=== PATIENT | female | born 1960 | race Caucasian/White ===

== ENCOUNTER → 2024-01-02 | Outpatient (CLI) | payer MEDICARE, SELFPAY ==
[2024-01-02 16:49] LABS: Absolute Lymphocyte Count 0.74 X10^3/uL (0.83-4.51); Absolute Neutrophil Count 8.2 X10^3/uL (2.0-7.7); Basophil# 0.05 X10^3/uL; Basophil% 0.5 % (0-1); Hematocrit 41.4 % (37-47); Hemoglobin 13.6 g/dL (12.0-15.0); Lymphocyte # 0.74 X10^3/ul (0.83-4.51); Lymphocyte % 7.8 % (19-41); Mean Corp Hgb Conc 32.9 g/dL (32-36); Mean Corpuscular Hgb 29.4 pg (27.0-32.0); Mean Corpuscular Volume 89.4 fL (81-99); Mean Platelet Vol. 9.3 fl (6.2-12.0); Monocyte# 0.33 X10^3/uL; Monocyte% 3.5 % (0-10); NRBC Flagged by Analyzer 0 % (0-5); Neutrophil # 8.15 X10^3/uL (2.7-7.7); Neutrophil % 86.3 % (47-70); Platelet Count 204 K/mm3 (150-450); RBC Distribution Width CV 13.7 % (11.6-14.6); RBC Distribution Width SD 44.6 fl (35.1-43.9); Red Blood Count 4.63 M/mm3 (4.2-5.4); White Blood Count 9.5 K/mm3 (4.4-11.0)
[2024-01-02 17:11] LABS: Erythrocyte Sedimentation Rate 4 mm/hr (0-30)
[2024-01-02 17:19] LABS: Vitamin B12 513 pg/mL (211-911)
[2024-01-02 18:00] LABS: ALB/GLOB Ratio 1.1 RATIO (0.9-2.4); AST(SGOT) 23 U/L (15-37); Alanine Aminotransfer ALT/SGPT 64 U/L (13-56); Albumin, Serum 3.4 g/dL (3.2-5.0); Alkaline Phosphatase 61 U/L (45-117); Anion Gap 6 (5-15); BUN 23 mg/dL (7-18); BUN/Creat Ratio 22.1 RATIO (10-20); CRP < 2.90 mg/L (0.0-3.0); Calcium,Total 8.9 mg/dL (8.5-10.1); Chloride 105 mmol/L (98-107); Creatinine, Serum 1.04 mg/dL (0.55-1.02); EST Glomerular Filtration Rate 56 mL/min (>60); Est Glom Filt Rate - Afr Amer 68 mL/min (>60); Globulin 3.1 g/dL (2.2-4.2); Glucose 128 mg/dL (74-106); LDH 242 U/L (84-246); Potassium 4.2 mmol/L (3.5-5.1); Protein, Total 6.5 g/dL (6.4-8.2); Sodium Level 137 mmol/L (136-145)
[2024-01-09 07:08] LABS: Anti-Centromere B Ab <0.2 AI (0.0-0.9); Anti-Chromatin <0.2 AI (0.0-0.9); Anti-Jo <0.2 AI (0.0-0.9); Anti-Mitochondrial AB <20.0 Units (0.0-20.0); Anti-Scleroderma-70 AB <0.2 AI (0.0-0.9); Anti-dsDNA Ab <1 IU/mL (0-9); Beef 0.15 kU/L (Class 0/I); Chocolate 0.21 kU/L (Class 0/I); Codfish 0.16 kU/L (Class 0/I); Corn 2.46 kU/L (Class III); Egg, Whole 0.13 kU/L (Class 0/I); Milk (Cow) 0.71 kU/L (Class II); Mussels 0.96 kU/L (Class II); Peanut 2.78 kU/L (Class III); Pork 0.13 kU/L (Class 0/I); RNP Ab <0.2 AI (0.0-0.9); SJOGREN'S Anti-SS-A test < 0.2 AI (0.0-0.9); SJOGREN'S Anti-SS-B test < 0.2 AI (0.0-0.9); Salmon 0.14 kU/L (Class 0/I); Shrimp 1.05 kU/L (Class II); Smith Ab <0.2 AI (0.0-0.9); Soybean 2.23 kU/L (Class III); Tuna 0.11 kU/L (Class 0/I); Wheat 2.67 kU/L (Class III)
[2024-01-09 17:07] LABS: ACCA 0 units (0-90); ALCA 3 units (0-60); AMCA 2 units (0-100); Albumin 3.8 g/dL (2.9-4.4); Alpha-1-Globulins 0.1 g/dL (0.0-0.4); Alpha-2-Globulins 0.7 g/dL (0.4-1.0); Chromogranin A 497.8 ng/mL (0.0-101.8); Cytoplasmic Ab (C-ANCA) <1:20 titer (Neg:<1:20); Endomysial Antibody IgA Negative (Negative); Gamma Globulin 0.6 g/dL (0.4-1.8); Gastrin, Serum 290 pg/mL (0-115); IgG, Quant 661 mg/dL (586-1602); Immunoglobulin A 131 mg/dL (87-352); Immunoglobulin E 114 IU/mL (6-495); Immunoglobulin G, Subclass 1 257 mg/dL (248-810); Immunoglobulin G, Subclass 2 280 mg/dL (130-555); Immunoglobulin G, Subclass 3 43 mg/dL (15-102); Immunoglobulin G, Subclass 4 24 mg/dL (2-96); Immunoglobulin M 75 mg/dL (26-217); PROEL- TOTAL PROTEIN 6.1 g/dL (6.0-8.5); Perinuclear Ab (P-ANCA) <1:20 titer (Neg:<1:20); gASCA 8 units (0-50); t-Transglutaminase IgA <2 U/mL (0-3)
== END | disposition home or self-care (01) ==
PROVIDERS: PCP Family Medicine; Referring Provider Internal Medicine Gastroenterology; Visit Provider Internal Medicine Gastroenterology
DX: K58.9 Irritable bowel syndrome, unspecified (principal); K21.9 Gastro-esophageal reflux disease without esophagitis; R13.10 Dysphagia, unspecified
CPT/HCPCS: 36415; 80053; 82533; 82607; 82746; 82784; 82785; 82787; 82941; 83516; 83615; 84165; 84443; 85025; 85652; 86003; 86005; 86036; 86140; 86225; 86235; 86255; 86256; 86316; 86334; 86671

== ENCOUNTER → 2024-01-18 | Outpatient (CLI) | payer MEDICARE, SELFPAY ==
--- NOTE | 2024-01-18 10:54 | NM_ITS ---
CLINICAL: 63-year-old female with history of abdominal bloating. SEMI-SOLID PHASE 99m Tc SULFUR COLLOID GASTRIC EMPTYING STUDY COMPARISON: None available FINDINGS: The patient was administered 1.0 mCi of 99m Tc sulfur colloid mixed with oatmeal and consumed per os. Image acquisitions in the anterior-posterior projections were obtained for 60 minutes. There is prompt visualization of the stomach. There is no gastroesophageal reflux identified. The T ? raw data emptying was calculated to be 30.45 minutes, (Normal: 12-56 minutes). NM/Gastric Emptying Study IMPRESSION: 1. NORMAL 99m Tc sulfur colloid semi-solid phase (oatmeal) gastric emptying imaging examination. A. There is normal and preserved semi-solid phase gastric emptying compared to normal controls. (Sam et al, J Nucl Med Tech 38: 186, 2010). Electronically Signed: Asael Jefferson DO at 12:09 EDT ,
== END | disposition home or self-care (01) ==
PROVIDERS: PCP Family Medicine; Referring Provider Internal Medicine Gastroenterology; Visit Provider Internal Medicine Gastroenterology
DX: R14.0 Abdominal distension (gaseous) (principal); K58.9 Irritable bowel syndrome, unspecified; K21.9 Gastro-esophageal reflux disease without esophagitis
CPT/HCPCS: 78264; A9541

== ENCOUNTER 2024-01-21 07:30 | Day surgery (SDC) | payer MEDICARE, SELFPAY ==
[2024-01-21] VITALS (7 sets, daily range): BP systolic 135–151; BP diastolic 66–90; PULSE 85–96; RESP 16; TEMP 36.2–36.6; O2SAT 97–100; BMI 27.9
[2024-01-21] MEDS: Lactated Ringers 1,000 ML 15 ML IV (07:55)
--- NOTE | 2024-01-21 08:00 | HP.PCM_ITS ---
History and Physical Date of Admission: 01/21/24 Chief Complaint: acid reflux, constipation and diarrhea Details: AYUSH MUELLER, is a 63 F who presents to the office today for follow up. BGI Established 2.1.23 with GI for acid reflux and alternating diarrhea and constipation. She reports a long hx of GI issues. Acid reflux to the point of spewing out when she lies down. Lots of heartburn. Hx of esophageal stricture requiring dilation. Hx of choking, requiring ED for food bolus removal, then prescribed pantoprazole which she eventually weaned herself off of. Then she took famotidine 40 mg bid but not effective enough. Just resumed pantoprazole a week ago, it is providing relief of acid reflux but she does have some dysphagia with eating meat. She loves to cook but finds herself not wanting to eat due to GI symptoms. Alternates between constipation and diarrhea. Seems like underlying constipation with urgent diarrhea that overflows. Tried Metamucil, bone broth, flax seed. When she gets bloated from constipation then she'll eat a food that causes diarrhea. Needs to eat small meals or get abd pain and bloating across upper a bdomen. Hx diverticulitis, small bowel obstruction. Colonoscopy approx 2019, EGD not in recent years PSH: cholecystectomy, hysterectomy OV 4.3.24- Pt following up. Was supposed to have EGD at last visit but had issues with INS coverage. States she has been recently hospitalized for low platlet counts r/t recent pneumonia and flu. Continues to have heartburn and swallowing issues. Concerned she has multiple food allergies. Has pain after eating that will last several hours. BM are irregular. Back and forth. ROS Const Constitutional: Positive for fatigue and weight change ENT ENT: Positive for difficulty swallowing Gastro GI: Positive for abdominal pain, bloating, diarrhea and difficulty swallowing; No belching, change in bowel habits, change in stool character, coffee ground emesis, constipation, cramping, heartburn, feeling full early, excessive flatus, incontinent of stools, Vomiting blood/hematemesis, Blood in stool, loose stools, Black,tarry stools, nausea/dyspepsia, pain with swallowing, vomiting or other Musc Musculoskeletal: No joint pain Skin Skin: No yellowing of the eye or itchy eyes Psych Psychiatric: No anxiety and No depression Endo Endocrine: Positive for fatigue and weight change Aller/Imm Allergy/Immunologic: No itchy eyes Jose Carlos/Lymp Hematologic/Lymphatic: No easy bleeding or easy bruising Exam Const General: cooperative, healthy appearing and comfortable Orientation: alert, awake and oriented x3 HENMT Head: normal to inspection Eyes General: appearance normal, both eyes and all related structures Resp Effort & Inspection: normal respiratory effort GI Inspection: normal to inspection Palpation: soft, no hepatosplenomegaly, no masses and nontender Skin General: no rashes or lesions noted Psych Mood: euthymic mood Quality Reporting Tobacco Screening ([facility] 138) Smoking Status: Never smoker Assessment and Plan Assessment and Plan (1) IBS (irritable bowel syndrome): Status: Chronic Plan: To she was given a diagnosis of viral bowel syndrome in the past. To me it sounds like she could have a multitude of diagnoses. Including gastroparesis, bile induced gastritis and esophagitis, exocrine pancreatic insufficiency, small bacterial overgrowth. She will undergo an upper endoscopy to evaluate upper GI tract. She will also undergo gastric emptying study and biochemical workup for autoimmune disease. She will also need a HIDA scan to see how much bile acid she may be refluxing back into her stomach. Once we have performed all the testing and we have objective data hopefully will be able to give her a diagnosis and treatment plan. (2) GERD (gastroesophageal reflux disease): Status: Chronic Plan: 62 yo female with chronic acid reflux, dysphagia w/ hx esophageal stricture, chronic alternating constipation and diarrhea with abdominal pains associated with both. EGD to eval for esophagitis, esophageal stricture, Lynn's esophagus. Treat for IBS with underlying constipation and overflow diarrhea. She has miralax at home, will try taking that daily. Other OTC options are FiberChoice tablets, kiwi supplements, aloe vera gel pills. F/u 2 wks after EGD. (3) Dysphagia: Status: Chronic Plan: see above Orders: Orders PAZ + Protein Elect, Serum Today K21.9 - Gastro-esophageal reflux disease withou t esophagitis, K58.9 - Irritable bowel syndrome without diarrhea Celiac Disease Profile Today K21.9 - Gastro-esophageal reflux disease without esophagitis, K58.9 - Irritable bowel syndrome without diarrhea CBC W/Diff, Automated Today K21.9 - Gastro-esophageal reflux disease without esophagitis, K58.9 - Irritable bowel syndrome without diarrhea ANCA Today K21.9 - Gastro-esophageal reflux disease without esophagitis, K58.9 - Irritable bowel syndrome without diarrhea Anti-Mitochondrial AB Today K21.9 - Gastro-esophageal reflux disease without esophagitis, K58.9 - Irritable bowel syndrome without diarrhea Comprehensive Metabolic Profil Today K21.9 - Gastro-esophageal reflux disease without esophagitis, K58.9 - Irritable bowel syndrome without diarrhea CRP Today K21.9 - Gastro-esophageal reflux disease without esophagitis, K58.9 - Irritable bowel syndrome without diarrhea Erythrocyte Sed Rate Today K21.9 - Gastro-esophageal reflux disease without esophagitis, K58.9 - Irritable bowel syndrome without diarrhea Immunoglobulin E Today K21.9 - Gastro-esophageal reflux disease without esophagitis, K58.9 - Irritable bowel syndrome without diarrhea Pancreatic Elastase, Fecal Today K21.9 - Gastro-esophageal reflux disease without esophagitis, K58.9 - Irritable bowel syndrome without diarrhea Ova and Parasites 8623 Today K21.9 - Gastro-esophageal reflux disease without esophagitis, K58.9 - Irritable bowel syndrome without diarrhea Giardia Lamblia, Stool EIA Today K21.9 - Gastro-esophageal reflux disease without esophagitis, K58.9 - Irritable bowel syndrome without diarrhea IBD Expanded Profile Today K21.9 - Gastro-esophageal reflux disease without esophagitis, K58.9 - Irritable bowel syndrome without diarrhea Allergen, Food Profile 14 Today K21.9 - Gastro-esophageal reflux disease without esophagitis, K58.9 - Irritable bowel syndrome without diarrhea RENATA Comprehensive Panel Today K21.9 - Gastro-esophageal reflux disease without esophagitis, K58.9 - Irritable bowel syndrome without diarrhea Calprotectin, Stool Today K21.9 - Gastro-esophageal reflux disease without esophagitis, K58.9 - Irritable bowel syndrome without diarrhea LDH Today K21.9 - Gastro-esophageal reflux disease without esophagitis, K58.9 - Irritable bowel syndrome without diarrhea IgG Subclasses Today K21.9 - Gastro-esophageal reflux disease without e sophagitis, K58.9 - Irritable bowel syndrome without diarrhea Thyroid Stim Hormone (TSH) Today K21.9 - Gastro-esophageal reflux disease without esophagitis, K58.9 - Irritable bowel syndrome without diarrhea, R13.10 - Dysphagia, unspecified Vitamin B12 Today K21.9 - Gastro-esophageal reflux disease without esophagitis, K58.9 - Irritable bowel syndrome without diarrhea Gastrin, Serum Today K21.9 - Gastro-esophageal reflux disease without esophagitis, K58.9 - Irritable bowel syndrome without diarrhea Chromogranin A Today K21.9 - Gastro-esophageal reflux disease without esophagitis, K58.9 - Irritable bowel syndrome without diarrhea CORTISOL SERUM Today K21.9 - Gastro-esophageal reflux disease without esophagitis, K58.9 - Irritable bowel syndrome without diarrhea Gastric Emptying Study Today K21.9 - Gastro-esophageal reflux disease without esophagitis, K58.9 - Irritable bowel syndrome without diarrhea, R14.0 - Abdominal distension (gaseous) Folates, (Folic Acid) Today K21.9 - Gastro-esophageal reflux disease without esophagitis, K58.9 - Irritable bowel syndrome without diarrhea I have examined the patient and the H&P has been reviewed. There are no clinical changes since date of exam.
--- NOTE | 2024-01-21 08:35 | IMM_PTH ---
PATIENT: AYUSH MICHELE LOC: [facility] U#:[id number] AGE/SX: 63/F ROOM: RE01/21/[address]: Dr. Dennis Galvin DO : 1960 BED: DIS: 01/21/2024 SPEC #: [id number] RECD: 01/21/24 12:07 STATUS: JOE OLYA #: [id number] EULALIA: 01/21/24 08:[address]: Dennis Galvin DEPT: IMMUNOHISTOCHEMISTRY RECD BY: Patrick Hernandez ENTERED: 01/21/24 12:08 SP TYPE: IMMUNO OTHR DR: Niecy Escobar PA-C Tissues: B - Stomach, NOS Procedures: H Pylori (initial) PHYSICIAN & INSTITUTION [place] [id number] SPECIMEN INFORMATION: Tissue Source: B- Gastric antrum biopsy Clinical Info: Abdominal pain, GERD Specimen Number: [id number] CPT code: 60751 METHODOLOGY: Deparaffinized sections of prefer/formalin-fixed tissue or PAP/DQ stained slides are incubated with monoclonal/polyclonal antibodies/oligonucleotide probes. Localization is made via biotin free immunoperoxidase method. Appropriate controls are performed and reacted as expected. Results on target cell population are indicated in the following table: RESULTS: ANTIBODY / CLONE RESULT Block B H Pylori (polyclonal) negative These tests were developed and their performance characteristics determined by [facility]. They may not have been cleared or approved by the U.S. Food and Drug Administration. The FDA has determined that such clearance or approval is not necessary. The above immunohistochemical/dualISH markers are ordered and reviewed by the Pathologist. INTERPRETATION: B. Gastric antrum, biopsy: Negative for Helicobacter pylori organisms. TARUN/ 01/22/2024
--- NOTE | 2024-01-21 08:35 | EGD_PTH ---
PATIENT: AYUSH MICHELE LOC: [facility] U#:[id number] AGE/SX: 63/F ROOM: RE01/21/[address]: Dr. Dennis Galvin DO : 1960 BED: DIS: 01/21/2024 SPEC #: [id number] RECD: 01/21/24 10:02 STATUS: JOE OLYA #: [id number] EULALIA: 01/21/24 08:[address]: Dennis Galvin DEPT: SURGICAL PATHOLOGY RECD BY: Sandra Cody ENTERED: 01/21/24 10:59 SP TYPE: EGD BIOPSY OT DR: Niecy Escobar PA-C Tissues: A - Duodenum, NOS B - Gastric mucous membrane C - Esophagus, NOS Procedures: Special Stain Group II Surgery Specimen Level IV Alcian Blue/PAS (control) HEADER OPERATION: EGD- PH probe with biopsies PRE-OP DIAGNOSIS: Abdominal pain, GERD TISSUE SUBMITTED: A- Duodenum ulcer biopsy, B- Gastric antrum biopsy, C- Distal esophagus biopsy MICROSCOPIC DIAGNOSIS A. Duodenum ulcer, biopsy: Fragments of duodenal mucosa with focal adenomatous changes. B. Gastric antrum, biopsy: Mild gastritis. See microscopic description and comment. C. Distal esophagus, biopsy: Fragments of gastroesophageal mucosa with chronic inflammation and minimal acute inflammation. Intestinal metaplasia (goblet cell metaplasia) not identified. See comment. TARUN/ 01/22/2024 COMMENT B. The results of immunohistochemistry for Helicobacter pylori will be reported separately ([id number]). C. Alcian blue/PAS stain with matched control is used in the evaluation of the specimen. MICROSCOPIC DESCRIPTION Slides are reviewed. B. The specimen shows fragments of gastric mucosa with chronic inflammatory cell infiltrates in the lamina propria consisting of lymphocytes and plasma cells, consistent with mild chronic gastritis. GROSS DESCRIPTION A. Received in fixative is one container labeled with the patient's name and designated Duodenum ulcer biopsy. The specimen consists of two irregular fragments of light brown soft tissue that in aggregate measure 0.6 x 0.3 x 0.1 cm. The specimen is totally submitted in one cassette. B. Received in fixative is one container labeled with the patient's name and designated Gastric antrum biopsy. The specimen consists of multiple irregular fragments of light brown soft tissue that in aggregate measure 0.8 x 0.4 x 0.1 cm. The specimen is totally submitted in one cassette. C. Received in fixative is one container labeled with the patient's name and designated Distal esophagus biopsy. The specimen consists of two irregular fragments of light brown soft tissue that in aggregate measure 0.8 x 0.4 x 0.1 cm. The specimen is totally submitted in one cassette. TARUN/ 01/21/2024 TC:5 CPT:51587g6,46974
--- NOTE | 2024-01-21 09:00 | OP.EGD_ITS ---
Patient Name: Loraine Gross Procedure Date: 01/21/2024 8:41 AM Date of : 1960 Age: 63 Procedure: Upper GI endoscopy Indications: Epigastric abdominal pain, Heartburn Providers: Dennis Galvin DO Referring MD: Niecy Escobar Medicines: Monitored Anesthesia Care Patient Profile: This is a 63 year old female. Refer to note in patient chart for documentation of history and physical. Patient has symptoms of chronic epigastric abdominal pain. Complications: No immediate complications. Procedure: Pre-Anesthesia Assessment: - Prior to the procedure, a History and Physical was performed, and patient medications and allergies were reviewed. The risks and benefits of the procedure and the sedation options and risks were discussed with the patient. All questions were answered and informed consent was obtained. Patient identification and proposed procedure were verified by the physician. Mental Status Examination: normal. Prophylactic Antibiotics: The patient does not require prophylactic antibiotics. Prior Anticoagulants: The patient has taken no anticoagulant or antiplatelet agents. After reviewing the risks and benefits, the patient was deemed in satisfactory condition to undergo the procedure. The anesthesia plan was to use monitored anesthesia care (MAC). Immediately prior to administration of medications, the patient was re-assessed for adequacy to receive sedatives. The heart rate, respiratory rate, oxygen saturations, blood pressure, adequacy of pulmonary ventilation, and response to care were monitored throughout the procedure. The physical status of the patient was re-assessed after the procedure. After obtaining informed consent, the endoscope was passed under direct vision. Throughout the procedure, the patient's blood pressure, pulse, and oxygen saturations were monitored continuously. The Endoscope was introduced through the mouth, and advanced to the second part of duodenum. The upper GI endoscopy was accomplished without difficulty. The patient tolerated the procedure well. Scope In: 8:47:18 AM Scope Out: 8:55:49 AM Total Procedure Duration Time 0 hours 8 minutes 31 seconds Findings: Non-severe esophagitis with no bleeding was found 35 to 37 cm from the incisors. Biopsies were taken with a cold forceps for histology. Verification of patient identification for the specimen was done. Estimated blood loss was minimal. The CHOUDHURY capsule with delivery system was introduced through the mouth and advanced into the esophagus, such that the CHOUDHURY pH capsule was positioned 38 cm from the incisors, which was 6 cm proximal to the GE junction. Suction was applied to the well of the CHOUDHURY pH capsule to suck in the adjacent mucosa of the esophagus using the external vacuum pump set at a minimum vacuum pressure of 550 mmHg for 30 seconds. The CHOUDHURY pH capsule was then deployed by depressing the plunger on top of the handle to advance the locking pin into the mucosa, thereby attaching the capsule to the esophagus. The plunger was then rotated a quarter turn clockwise to release the capsule from the delivery system. The delivery system was then withdrawn. Endoscopy was utilized for probe placement and diagnostic evaluation. Patchy mild inflammation characterized by erosions and erythema was found in the gastric body and in the gastric antrum. Biopsies were taken with a cold forceps for histology. Verification of patient identification for the specimen was done. Biopsies were taken with a cold forceps for Helicobacter pylori testing. Verification of patient identification for the specimen was done. Estimated blood loss was minimal. One non-bleeding cratered duodenal ulcer with no stigmata of bleeding was found in the first portion of the duodenum. The lesion was 5 mm in largest dimension. Biopsies were taken with a cold forceps for histology. Verification of patient identification for the specimen was done. Estimated blood loss was minimal. Impression: - Non-severe reflux esophagitis with no bleeding. Biopsied. - Chronic gastritis. Biopsied. - Non-bleeding duodenal ulcer with no stigmata of bleeding. Biopsied. - The CHOUHDURY pH capsule was positioned 38 cm from the incisors, which was 6 cm proximal to the GE junction. Recommendation: - Discharge patient to home. - Resume previous diet. - Continue present medications. - Await pathology results. - Repeat upper endoscopy in 1 year for surveillance. Procedure Code(s): --- Professional --- 90915, Esophagogastroduodenoscopy, flexible, transoral; with biopsy, single or multiple CPT copyright 2021 [employer]. All rights reserved. The codes documented in this report are preliminary and upon county coroner review may be revised to meet current compliance requirements. Dennis Galvin DO 01/21/2024 9:00:00 AM This report has been signed electronically. Number of Addenda: 0 Note Initiated On: 01/21/2024 8:41 AM
--- NOTE | 2024-01-21 09:00 | OP.CCLET_ITS ---
01/21/2024 [facility] Re : Upper GI endoscopy procedure for Loraine Escobar This procedure was performed on Sunday, January 21, 2024. My impressions and recommendations are as follows: Impressions : - Non-severe reflux esophagitis with no bleeding. Biopsied. - Chronic gastritis. Biopsied. - Non-bleeding duodenal ulcer with no stigmata of bleeding. Biopsied. - The CHOUDHURY pH capsule was positioned 38 cm from the incisors, which was 6 cm proximal to the GE junction. Recommendations : - Discharge patient to home. - Resume previous diet. - Continue present medications. - Await pathology results. - Repeat upper endoscopy in 1 year for surveillance. My findings are described in the full procedure note, which is enclosed. If I can be of further assistance, please feel free to contact me at . Sincerely, Dennis Galvin, 01/21/2024 9:00:00 AM This report has been signed electronically.
== END 2024-01-21 09:53 | disposition home or self-care (01) ==
LOC: EN 07:30 → AC 07:31
PROVIDERS: PCP Family Medicine; Referring Provider Family Medicine; Visit Provider Internal Medicine Gastroenterology
PROC: (CPT 43235; principal; 2024-01-21 08:30)
DX: K21.00 Gastro-esophageal reflux disease with esophagitis, without bleeding (principal); K29.50 Unspecified chronic gastritis without bleeding; K26.9 Duodenal ulcer, unspecified as acute or chronic, without hemorrhage or perforation; K58.2 Mixed irritable bowel syndrome; Z79.899 Other long term (current) drug therapy
CPT/HCPCS: 43235; 88305; 88313; 88342; J7120; J2405

== ENCOUNTER → 2024-05-09 | Outpatient (CLI) | payer MEDICARE, SELFPAY ==
--- NOTE | 2024-05-09 08:19 | US_ITS ---
STUDY: ABDOMINAL ULTRASOUND - RIGHT UPPER QUADRANT; ELASTOGRAPHY REASON FOR VISIT: Female, 64 years old. Elevated liver function tests. TECHNIQUE: Ultrasound evaluation of the right upper quadrant was performed with real-time and static merino-scale imaging. Point quantification shear wave elastography was performed ([place]). TECHNICAL QUALITY: Adequate. COMPARISON: None. FINDINGS: Liver: The liver measures 17.6 cm. There is increased echogenicity consistent with fatty infiltration. The bile ducts are within normal limits. There is hepatic color flow. The direction of portal flow is hepatopetal. There is no demonstrated mass lesion. Median liver stiffness measured 7.2 kPa. Gallbladder: The patient is status post cholecystectomy. Common Bile Duct (C.B.D.): The common bile duct measures 5.6 mm. Pancreas: There is normal echogenicity of the visualized pancreas. There is no demonstrated pancreatic mass or cyst. Right Kidney: Normal size of the right kidney. The right kidney measures 10.9 cm x 6.3 cm x 4.3 cm. Normal renal cortex. The right cortex measures 1.2 cm. There is no demonstrated renal mass or cyst. There is no right hydronephrosis. US/ABD Limited w/ Elastography IMPRESSION: 1. Liver stiffness measures 7.2 kPa compatible with F2-F3 (Mild to moderate liver fibrosis) Metavir score. 2. Fatty infiltration of the liver. Electronically Signed: Javy Flynn MD at 12:06 EDT ,
== END | disposition home or self-care (01) ==
PROVIDERS: PCP Family Medicine; Referring Provider Internal Medicine Gastroenterology; Visit Provider Internal Medicine Gastroenterology
DX: R79.89 Other specified abnormal findings of blood chemistry (principal)
CPT/HCPCS: 76705; 76981

== ENCOUNTER 2024-05-26 10:39 | Day surgery (SDC) | payer MEDICARE, SELFPAY ==
[2024-05-26] VITALS (9 sets, daily range): BP systolic 110–170; BP diastolic 71–82; PULSE 76–89; RESP 16; TEMP 36.4–36.9; O2SAT 97–99; BMI 29.9
--- NOTE | 2024-05-26 | ESO_PTH ---
PATIENT: AYUSH MICHELE LOC: [facility] U#:[id number] AGE/SX: 64/F ROOM: RE05/26/[address]: Dr. Dennis Galvin DO : 1960 BED: DIS: 05/26/2024 SPEC #: [id number] RECD: 05/27/24 07:10 STATUS: JOE OLYA #: [id number] EULALIA: 05/26/24 00:[address]: Dennis Galvin DEPT: SURGICAL PATHOLOGY RECD BY: José Miguel Oleary ENTERED: 05/27/24 09:59 SP TYPE: ADRI EDMONDSON DR: Niecy Escobar PA-C Tissues: A - Esophagus, NOS B - Ileum, NOS C - COLON BIOPSY Procedures: Special Stain Group I Surgery Specimen Level IV Alcian Blue/PAS (control) HEADER OPERATION: Colonoscopy, EGD with biopsy PRE-OP DIAGNOSIS: Irritable bowel syndrome, GERD, dysphagia TISSUE SUBMITTED: A- Distal esophagus biopsy, B- Terminal ileum biopsy, C- Random colon biopsy MICROSCOPIC DIAGNOSIS A. Distal esophagus, biopsy: Fragments of gastroesophageal mucosa with moderate chronic inflammation. Intestinal metaplasia (goblet cell metaplasia) not identified. See comment. B. Terminal ileum, biopsy: A fragment of small intestinal mucosa, no pathologic diagnosis. C. Colon, random biopsy: Fragments of colonic mucosa, no pathologic diagnosis. TARUN/ 05/28/2024 COMMENT A. Alcian blue/PAS stain with matched control supports the above diagnosis. MICROSCOPIC DESCRIPTION Slides are reviewed. GROSS DESCRIPTION A. Received in fixative is one container labeled with the patient's name and designated Distal esophagus biopsy. The specimen consists of multiple irregular fragments of light brown soft tissue that in aggregate measure 0.8 x 0.3 x 0.1 cm. The specimen is totally submitted in one cassette. B. Received in fixative is one container labeled with the patient's name and designated Terminal ileum biopsy. The specimen consists of one irregular fragment of light brown soft tissue that measures 0.3 x 0.3 x 0.1 cm. The specimen is totally submitted in one cassette. C. Received in fixative is one container labeled with the patient's name and designated Random colon biopsy. The specimen consists of multiple irregular fragments of light brown soft tissue that in aggregate measure 1.5 x 0.5 x 0.1 cm. The specimen is totally submitted in one cassette. SJ.mr 05/27/2024 TC:3 CPT:73561q2,12640
[2024-05-26] MEDS: Lactated Ringers 1,000 ML 15 ML IV (11:11)
--- NOTE | 2024-05-26 11:32 | HP.PCM_ITS ---
History and Physical Date of Admission: 05/26/24 Chief Complaint: acid reflux, constipation and diarrhea Details: AYUSH MUELLER, is a 63 F who presents to the office today for follow up. [facility] Established 2.1.23 with GI for acid reflux and alternating diarrhea and constipation. She reports a long hx of GI issues. Acid reflux to the point of spewing out when she lies down. Lots of heartburn. Hx of esophageal stricture requiring dilation. Hx of choking, requiring ED for food bolus removal, then prescribed pantoprazole which she eventually weaned herself off of. Then she took famotidine 40 mg bid but not effective enough. Just resumed pantoprazole a week ago, it is providing relief of acid reflux but she does have some dysphagia with eating meat. She loves to cook but finds herself not wanting to eat due to GI symptoms. Alternates between constipation and diarrhea. Seems like underlying constipation with urgent diarrhea that overflows. Tried Metamucil, bone broth, flax seed. When she gets bloated from constipation then she'll eat a food that causes diarrhea. Needs to eat small meals or get abd pain and bloating across upper a bdomen. Hx diverticulitis, small bowel obstruction. Colonoscopy approx 2019, EGD not in recent years PSH: cholecystectomy, hysterectomy OV 4.3.24- Pt following up. Was supposed to have EGD at last visit but had issues with INS coverage. States she has been recently hospitalized for low platlet counts r/t recent pneumonia and flu. Continues to have heartburn and swallowing issues. Concerned she has multiple food allergies. Has pain after eating that will last several hours. BM are irregular. Back and forth. ROS Const Constitutional: Positive for fatigue and weight change ENT ENT: Positive for difficulty swallowing Gastro GI: Positive for abdominal pain, bloating, diarrhea and difficulty swallowing; No belching, change in bowel habits, change in stool character, coffee ground emesis, constipation, cramping, heartburn, feeling full early, excessive flatus, incontinent of stools, Vomiting blood/hematemesis, Blood in stool, loose stools, Black,tarry stools, nausea/dyspepsia, pain with swallowing, vomiting or other Musc Musculoskeletal: No joint pain Skin Skin: No yellowing of the eye or itchy eyes Psych Psychiatric: No anxiety and No depression Endo Endocrine: Positive for fatigue and weight change Aller/Imm Allergy/Immunologic: No itchy eyes Jose Carlos/Lymp Hematologic/Lymphatic: No easy bleeding or easy bruising Exam Const General: cooperative, healthy appearing and comfortable Orientation: alert, awake and oriented x3 HENMT Head: normal to inspection Eyes General: appearance normal, both eyes and all related structures Resp Effort & Inspection: normal respiratory effort GI Inspection: normal to inspection Palpation: soft, no hepatosplenomegaly, no masses and nontender Skin General: no rashes or lesions noted Psych Mood: euthymic mood Quality Reporting Tobacco Screening ([facility]) Smoking Status: Never smoker Assessment and Plan Assessment and Plan (1) IBS (irritable bowel syndrome): Status: Chronic Plan: To she was given a diagnosis of viral bowel syndrome in the past. To me it sounds like she could have a multitude of diagnoses. Including gastroparesis, bile induced gastritis and esophagitis, exocrine pancreatic insufficiency, small bacterial overgrowth. She will undergo an upper endoscopy to evaluate upper GI tract. She will also undergo gastric emptying study and biochemical workup for autoimmune disease. She will also need a HIDA scan to see how much bile acid she may be refluxing back into her stomach. Once we have performed all the testing and we have objective data hopefully will be able to give her a diagnosis and treatment plan. (2) GERD (gastroesophageal reflux disease): Status: Chronic Plan: 62 yo female with chronic acid reflux, dysphagia w/ hx esophageal stricture, chronic alternating constipation and diarrhea with abdominal pains associated with both. EGD to eval for esophagitis, esophageal stricture, Lynn's esophagus. Treat for IBS with underlying constipation and overflow diarrhea. She has miralax at home, will try taking that daily. Other OTC options are FiberChoice tablets, kiwi supplements, aloe vera gel pills. F/u 2 wks after EGD. (3) Dysphagia: Status: Chronic Plan: see above Orders: Orders PAZ + Protein Elect, Serum Today K21.9 - Gastro-esophageal reflux disease withou t esophagitis, K58.9 - Irritable bowel syndrome without diarrhea Celiac Disease Profile Today K21.9 - Gastro-esophageal reflux disease without esophagitis, K58.9 - Irritable bowel syndrome without diarrhea CBC W/Diff, Automated Today K21.9 - Gastro-esophageal reflux disease without esophagitis, K58.9 - Irritable bowel syndrome without diarrhea ANCA Today K21.9 - Gastro-esophageal reflux disease without esophagitis, K58.9 - Irritable bowel syndrome without diarrhea Anti-Mitochondrial AB Today K21.9 - Gastro-esophageal reflux disease without esophagitis, K58.9 - Irritable bowel syndrome without diarrhea Comprehensive Metabolic Profil Today K21.9 - Gastro-esophageal reflux disease without esophagitis, K58.9 - Irritable bowel syndrome without diarrhea CRP Today K21.9 - Gastro-esophageal reflux disease without esophagitis, K58.9 - Irritable bowel syndrome without diarrhea Erythrocyte Sed Rate Today K21.9 - Gastro-esophageal reflux disease without esophagitis, K58.9 - Irritable bowel syndrome without diarrhea Immunoglobulin E Today K21.9 - Gastro-esophageal reflux disease without esophagitis, K58.9 - Irritable bowel syndrome without diarrhea Pancreatic Elastase, Fecal Today K21.9 - Gastro-esophageal reflux disease without esophagitis, K58.9 - Irritable bowel syndrome without diarrhea Ova and Parasites [id number] Today K21.9 - Gastro-esophageal reflux disease without esophagitis, K58.9 - Irritable bowel syndrome without diarrhea Giardia Lamblia, Stool EIA Today K21.9 - Gastro-esophageal reflux disease without esophagitis, K58.9 - Irritable bowel syndrome without diarrhea IBD Expanded Profile Today K21.9 - Gastro-esophageal reflux disease without esophagitis, K58.9 - Irritable bowel syndrome without diarrhea Allergen, Food Profile 14 Today K21.9 - Gastro-esophageal reflux disease without esophagitis, K58.9 - Irritable bowel syndrome without diarrhea RENATA Comprehensive Panel Today K21.9 - Gastro-esophageal reflux disease without esophagitis, K58.9 - Irritable bowel syndrome without diarrhea Calprotectin, Stool Today K21.9 - Gastro-esophageal reflux disease without esophagitis, K58.9 - Irritable bowel syndrome without diarrhea LDH Today K21.9 - Gastro-esophageal reflux disease without esophagitis, K58.9 - Irritable bowel syndrome without diarrhea IgG Subclasses Today K21.9 - Gastro-esophageal reflux disease without e sophagitis, K58.9 - Irritable bowel syndrome without diarrhea Thyroid Stim Hormone (TSH) Today K21.9 - Gastro-esophageal reflux disease without esophagitis, K58.9 - Irritable bowel syndrome without diarrhea, R13.10 - Dysphagia, unspecified Vitamin B12 Today K21.9 - Gastro-esophageal reflux disease without esophagitis, K58.9 - Irritable bowel syndrome without diarrhea Gastrin, Serum Today K21.9 - Gastro-esophageal reflux disease without esophagitis, K58.9 - Irritable bowel syndrome without diarrhea Chromogranin A Today K21.9 - Gastro-esophageal reflux disease without esophagitis, K58.9 - Irritable bowel syndrome without diarrhea CORTISOL SERUM Today K21.9 - Gastro-esophageal reflux disease without esophagitis, K58.9 - Irritable bowel syndrome without diarrhea Gastric Emptying Study Today K21.9 - Gastro-esophageal reflux disease without esophagitis, K58.9 - Irritable bowel syndrome without diarrhea, R14.0 - Abdominal distension (gaseous) Folates, (Folic Acid) Today K21.9 - Gastro-esophageal reflux disease without esophagitis, K58.9 - Irritable bowel syndrome without diarrhea I have examined the patient and the H&P has been reviewed. There are no clinical changes since date of exam.
--- NOTE | 2024-05-26 12:11 | PCM.PRE.AN2 ---
ASA Classification* ASA Classification ASA Classification: 3 Assessment & Plan Anesthesia* Anesthesia Assessment Anesthesia Assessment: Discussed sedation and/or anesthesia options, risks, benefits, and alternatives with patient/parents/legal guardian/POA. Questions invited. The patient/parents/legal guardian/POA seems to understand and agrees to proceed with anesthesia plan. Reviewed the physical assessment, medical history, allergy history and patient home medications list prior to surgery/procedure/anesthetic and documented any changes. Performed airway and anesthesia risk assessments. Anesthesia Type Anesthesia Type: MAC History Source History Obtained from:: Patient and Chart Anesthesia Focused Assessment* Temperature: 98.4 F Pulse Rate: 87 Blood Pressure: 170/72 Respiratory Rate: 16 Pulse Ox: 99 Oxygen Delivery Method: Room Air Airway Assessment Mouth opens: >3 cm Mallampati Score: III Teeth Condition: Intact Neck Range of motion (ROM): Full ROM Focused Labs Anesthesia Preop lab: CBC WBC 9.5 K/mm3 (4.4-11.0) 01/02/24 16:05 RBC 4.63 M/mm3 (4.2-5.4) 01/02/24 16:05 Hgb 13.6 g/dL (12.0-15.0) 01/02/24 16:05 Hct 41.4 % (37-47) 01/02/24 16:05 Plt Count 204 K/mm3 (150-450) 01/02/24 16:05 CHEMISTRY Potassium 4.2 mmol/L (3.5-5.1) 01/02/24 16:05 Sodium 137 mmol/L (136-145) 01/02/24 16:05 BUN 23 mg/dL (7-18) H 01/02/24 16:05 Creatinine 1.04 mg/dL (0.55-1.02) H 01/02/24 16:05 Glucose 128 mg/dL (74-106) H 01/02/24 16:05 TSH 0.70 uIU/mL (0.358-3.74) 01/02/24 16:05 COAG Pre-Assessment Diagnosis/Proposed Procedure Planned Operative Procedure(s): COLONOSCOPY/EGD Anesthesia History Anesthesia History - retail wireless associate: Anesthesia History - retail wireless associate Hx Hospitalization Yes: [facility], LOW PLT, 05/21/24 13:07 CURRENTLY F/U WITH HEMATOLOGY, INFUSIONS 3X/WK Any Problems With Anesthesia No 05/21/24 13:07 Cholinesterase deficiency No 05/21/24 13:07 You/Your Family Experience No 05/21/24 13:07 fever (hyperthermia) with Relationship Recent Exposure to Contagious No 05/26/24 10:56 Disease Does patient have nerve No 05/21/24 13:07 stimulator Patient instructed to have device shut off --Does patient have Pacemaker No 05/26/24 10:56 or ICD? When Was Last Pacemaker Check QUESTION #4 FULL TEXT: You/Your Family Experience fever (hyperthermia) with Anesthesia Last Oral Intake Last Oral intake: Last Oral Intake NPO since 06:00 05/26/24 10:56 Meds taken in AM with sips of No 05/26/24 10:56 water? Meds patient instructed to take am of surgery Any additional information?: Yes NPO since: 06:00 (Patient finished prep at 6 AM.) PONV PONV - retail wireless associate: PONV - retail wireless associate Female Yes 05/21/24 13:07 HX of Motion Sickness No 05/21/24 13:07 HX of N/V After Surgery No 05/21/24 13:07 Non-Smoker Yes 05/21/24 13:07 Duration of Surgery greater No 05/21/24 13:07 than 60 minutes Number of Risk Factors 2 05/21/24 13:07 PONV Score Moderate Risk 05/21/24 13:07 Height & Weight Height & Weight: Anesthesia: Height & Weight Height 5 ft 4 in 05/26/24 10:56 Weight: 79 kg 05/26/24 10:56 Body Mass Index (BMI) 29.9 05/26/24 10:56 Respiratory Assessment Respiratory Assessment - retail wireless associate: Respiratory Tract Infection Hx - retail wireless associate Hx Respiratory Tract Infection No 05/21/24 13:07 STOP Sleep Apnea STOP Sleep Apnea - retail wireless associate: STOP Sleep Apnea - retail wireless associate Hx Hypertension Yes: CONTROLLED WITH MED, 05/21/24 13:07 Hx Sleep Apnea No 05/21/24 13:07 CPAP BIPAP Do you snore loudly (louder No 05/21/24 13:07 than talking or can be heard Do you often feel tired/ No 05/21/24 13:07 fatigued/ sleepy during daytime? Has anyone observed you stop No 05/21/24 13:07 breathing during sleep? STOP Results Negative 05/21/24 13:07 QUESTION #5 FULL TEXT : Do you snore loudly (louder than talking or can be heard through closed doors)? Tobacco Use History Tobacco Use History - retail wireless associate: Tobacco Use History - retail wireless associate Tobacco Use Smoking Status Never smoker 05/21/24 13:07 Hx Tobacco Use No 05/21/24 13:07 Years Smoking Packs Smoked per Day Smoking Cessation Date was within the last 15 years Hx Smoking Cessation Date Hx Smoking Cessation Counseling Hematologic Medial History Hematologic Hx - retail wireless associate: Hematologic Medical Hx - boilermaker welder Hx of Blood Transfusion No 05/21/24 13:07 Hx of Transfusion in last 3 No 05/21/24 13:07 Months Date of Last Transfusion (if within last 3 months) Ever experience any problems No 05/21/24 13:07 with transfusion(s)? Specify any problems Hx of Preganancy in last 3 No 05/21/24 13:07 Months Nurse Filling Out Transfusion VCHRISTIN 05/21/24 13:07 & Questions: Date: 05/21/24 05/21/24 13:07 Time: 13:09 05/21/24 13:07 Patient unable to answer at this time (ie. confused, unrespo /Reproduction History /Reproductive History - retail wireless associate: /Reproductive Hx- retail wireless associate Hx Now No 05/21/24 13:07 Gestational Age (in weeks): EDC: Hx Hx Para Hx Section SAB No 05/21/24 13:07 Active Medications Active Medications: Current Medications Generic Name Dose Route Start Last Admin Trade Name Freq PRN Reason Stop Dose Admin Lactated Ringer's 1,000 mls @ 15 mls/hr 05/26/24 10:45 05/26/24 11:11 IV 15 mls/hr .Q48H KELLIE Administration PFSH Medical History Thrombocytopenia Wears glasses History of steroid therapy Easy bruising Excessive bleeding Migraine headache History of hiatal hernia History of diverticulitis History of edema Leg cramps Non-smoker Chest pain Cardiology follow-up encounter Esophageal stricture Intestinal adhesions [bands], unspecified as to partial versus complete obstruction External hemorrhoids Epigastric pain LLQ pain Diarrhea Hyperglycemia HTN (hypertension) COPD (chronic obstructive pulmonary disease) Asthma IBS (irritable bowel syndrome) Hair loss Left shoulder pain Chronic headaches S/p small bowel obstruction Diverticulitis Globus sensation GERD (gastroesophageal reflux disease) Home Medications ?Medication ?Instructions ?Recorded ?Last Taken ?Type albuterol sulfate 90 mcg/actuation 1 inh inhalation ONCE 08/22/22 01/21/24 06:30 History aerosol inhaler (ProAir HFA) ascorbic acid (vitamin C) 1,000 mg 1 g PO DAILY 08/22/22 Unknown History capsule epinephrine 0.3 mg/0.3 mL 0.3 mg IM ONCE 08/22/22 Unknown History injection, auto-injector (EpiPen) ergocalciferol (vitamin D2) 1,250 1,250 mcg PO QMONTH 08/22/22 Unknown History mcg (50,000 unit) capsule fluticasone 250 mcg-salmeterol 50 1 inh inhalation BID 08/22/22 05/26/24 History mcg/dose blistr powdr for inhalation (Wixela Inhub) losartan 50 mg-hydrochlorothiazide 1 tab PO DAILY 08/22/22 Unknown History 12.5 mg tablet montelukast 10 mg tablet 10 mg PO DAILY 08/22/22 Unknown History (Singulair) omega 8-srg-uod-fish oil 60 mg-90 1 cap PO DAILY 08/22/22 Unknown History mg-500 mg capsule (Fish Oil) zinc sulfate 50 mg zinc (220 mg) 50 mg PO DAILY 08/22/22 Unknown History capsule (Zinc-220) pantoprazole 40 mg tablet,delayed 40 mg PO DAILY 11/01/22 01/21/24 06:30 History release albuterol sulfate 2.5 mg/3 mL 2.5 mg inhalation Q4H PRN PRN 01/16/24 01/21/24 06:30 History (0.083 %) solution for nebulization shortness of breath or wheezing ipratropium 0.5 mg-albuterol 3 mg 3 ml inhalation 4X/DAY PRN 01/16/24 Unknown History (2.5 mg base)/3 mL nebulization shortness of breath soln oregano oil 1,500 mg capsule 1,500 mg PO DAILY 01/16/24 Unknown History peppermint oil 50 mg 50 mg PO DAILY 01/16/24 Unknown History capsule,delayed release ursodiol 250 mg tablet 250 mg PO QHS #30 tabs 05/15/24 Unknown Rx multivitamin (Daily Multi-Vitamin 1 tab PO DAILY 05/21/24 Unknown History tablet) Allergy/AdvReac Type Severity Reaction Status Date / Time Iodinated Contrast Media Allergy Intermediate Other Verified 05/26/24 10:52 shellfish derived Allergy Intermediate Other Verified 05/26/24 10:52 Family History Mother Asthma Diabetes Sister Asthma Diabetes Surgical History History of esophagogastroduodenoscopy (EGD) Hx of bilateral cataract extraction History of colonoscopy History of esophagogastroduodenoscopy (EGD) History of laparoscopy H/O total hysterectomy S/P cholecystectomy Social History Smoking Status: Never smoker alcohol intake: current alcohol intake frequency: holidays/special occasions only Review of Systems (Anesthesia) ROS Narrative System reviewed and no additional complaints, except as documented.
--- NOTE | 2024-05-26 13:03 | OP.EGD_ITS ---
Patient Name: Loraine Gross Procedure Date: 05/26/2024 12:27 PM Date of : 1960 Age: 64 Procedure: Upper GI endoscopy Indications: Dysphagia Providers: Dennis Galvin DO Medicines: Monitored Anesthesia Care Patient Profile: This is a 64 year old female. Refer to note in patient chart for documentation of history and physical. Complications: No immediate complications. Procedure: Pre-Anesthesia Assessment: - Prior to the procedure, a History and Physical was performed, and patient medications and allergies were reviewed. The patient is competent. The risks and benefits of the procedure and the sedation options and risks were discussed with the patient. All questions were answered and informed consent was obtained. Patient identification and proposed procedure were verified by the physician in the pre-procedure area. Mental Status Examination: alert and oriented. Airway Examination: normal oropharyngeal airway and neck mobility. Respiratory Examination: clear to auscultation. CV Examination: normal. Prophylactic Antibiotics: The patient does not require prophylactic antibiotics. Prior Anticoagulants: The patient has taken no anticoagulant or antiplatelet agents except for NSAID medication. ASA Grade Assessment: III - A patient with severe systemic disease. After reviewing the risks and benefits, the patient was deemed in satisfactory condition to undergo the procedure. The anesthesia plan was to use monitored anesthesia care (MAC). Immediately prior to administration of medications, the patient was re-assessed for adequacy to receive sedatives. The heart rate, respiratory rate, oxygen saturations, blood pressure, adequacy of pulmonary ventilation, and response to care were monitored throughout the procedure. The physical status of the patient was re-assessed after the procedure. After obtaining informed consent, the endoscope was passed under direct vision. Throughout the procedure, the patient's blood pressure, pulse, and oxygen saturations were monitored continuously. The colonoscope was introduced through the mouth, and advanced to the second part of duodenum. The upper GI endoscopy was accomplished without difficulty. The patient tolerated the procedure well. Scope In: 12:40:40 PM Scope Out: 12:47:29 PM Total Procedure Duration Time 0 hours 6 minutes 49 seconds Findings: A moderate Schatzki ring was found at the gastroesophageal junction. A guidewire was placed and the scope was withdrawn. Dilation was performed with a Savary dilator with no resistance at 54 Fr. The dilation site was examined and showed moderate mucosal disruption. Estimated blood loss was minimal. Non-severe esophagitis with no bleeding was found 39 to 41 cm from the incisors. Biopsies were taken with a cold forceps for histology. Verification of patient identification for the specimen was done. Estimated blood loss was minimal. A medium-sized hiatal hernia was present. No gross lesions were noted in the first portion of the duodenum. Impression: - Moderate Schatzki ring. Dilated. - Non-severe reflux esophagitis with no bleeding. Biopsied. - Medium-sized hiatal hernia. - No gross lesions in the first portion of the duodenum. Recommendation: - Discharge patient to home. - Resume previous diet. - Continue present medications. - Await pathology results. - Repeat upper endoscopy in 1 year for surveillance. Procedure Code(s): --- Professional --- 21526, Esophagogastroduodenoscopy, flexible, transoral; with insertion of guide wire followed by passage of dilator(s) through esophagus over guide wire 97730, 59,51, Esophagogastroduodenoscopy, flexible, transoral; with biopsy, single or multiple CPT copyright 2021 [employer]. All rights reserved. The codes documented in this report are preliminary and upon janitorial account manager review may be revised to meet current compliance requirements. Dennis Galvin DO 05/26/2024 1:02:32 PM This report has been signed electronically. Number of Addenda: 0 Note Initiated On: 05/26/2024 12:27 PM
--- NOTE | 2024-05-26 13:03 | OP.CCLET_ITS ---
05/26/2024 [place] [facility] : Upper GI endoscopy procedure for Loraine Escobar This procedure was performed on Sunday, May 26, 2024. My impressions and recommendations are as follows: Impressions : - Moderate Schatzki ring. Dilated. - Non-severe reflux esophagitis with no bleeding. Biopsied. - Medium-sized hiatal hernia. - No gross lesions in the first portion of the duodenum. Recommendations : - Discharge patient to home. - Resume previous diet. - Continue present medications. - Await pathology results. - Repeat upper endoscopy in 1 year for surveillance. My findings are described in the full procedure note, which is enclosed. If I can be of further assistance, please feel free to contact me at . Sincerely, Dennis Galvin, 05/26/2024 1:02:32 PM This report has been signed electronically.
--- NOTE | 2024-05-26 13:05 | OP.COLON_ITS ---
Patient Name: Loraine Gross Procedure Date: 05/26/2024 12:47 PM Date of : 1960 Age: 64 Procedure: Colonoscopy Indications: Clinically significant diarrhea of unexplained origin Providers: Dennis Galvin DO Medicines: Monitored Anesthesia Care Patient Profile: This is a 64 year old female. Refer to note in patient chart for documentation of history and physical. Last Colonoscopy: date unknown. Unable to locate last colonoscopy report. Complications: No immediate complications. Procedure: Pre-Anesthesia Assessment: - Prior to the procedure, a History and Physical was performed, and patient medications and allergies were reviewed. The patient is competent. The risks and benefits of the procedure and the sedation options and risks were discussed with the patient. All questions were answered and informed consent was obtained. Patient identification and proposed procedure were verified by the physician in the pre-procedure area. Mental Status Examination: alert and oriented. Airway Examination: normal oropharyngeal airway and neck mobility. Respiratory Examination: clear to auscultation. CV Examination: normal. Prophylactic Antibiotics: The patient does not require prophylactic antibiotics. Prior Anticoagulants: The patient has taken no anticoagulant or antiplatelet agents except for NSAID medication. ASA Grade Assessment: III - A patient with severe systemic disease. After reviewing the risks and benefits, the patient was deemed in satisfactory condition to undergo the procedure. The anesthesia plan was to use monitored anesthesia care (MAC). Immediately prior to administration of medications, the patient was re-assessed for adequacy to receive sedatives. The heart rate, respiratory rate, oxygen saturations, blood pressure, adequacy of pulmonary ventilation, and response to care were monitored throughout the procedure. The physical status of the patient was re-assessed after the procedure. After I obtained informed consent, the scope was passed under direct vision. Throughout the procedure, the patient's blood pressure, pulse, and oxygen saturations were monitored continuously. The colonoscope was introduced through the anus and advanced to the terminal ileum. The colonoscopy was performed without difficulty. The patient tolerated the procedure well. The quality of the bowel preparation was adequate. Scope In: 12:48:02 PM Scope Withdrawal Time 0 hours 6 minutes 2 seconds Scope Out: 12:57:14 PM Total Procedure Duration Time 0 hours 9 minutes 12 seconds Findings: The perianal and digital rectal examinations were normal. A few small-mouthed diverticula were found in the recto-sigmoid colon and sigmoid colon. An area of mildly congested mucosa was found in the recto-sigmoid colon, in the sigmoid colon and in the transverse colon. Biopsies were taken with a cold forceps for histology. Verification of patient identification for the specimen was done. Estimated blood loss was minimal. The terminal ileum appeared normal. Biopsies were taken with a cold forceps for histology. Verification of patient identification for the specimen was done. Estimated blood loss was minimal. Impression: - Diverticulosis in the recto-sigmoid colon and in the sigmoid colon. - Congested mucosa in the recto-sigmoid colon, in the sigmoid colon and in the transverse colon. Biopsied. - The examined portion of the ileum was normal. Biopsied. Recommendation: - Discharge patient to home. - Resume previous diet. - Continue present medications. - Await pathology results. - Repeat colonoscopy for surveillance. Procedure Code(s): --- Professional --- 27360, Colonoscopy, flexible; with biopsy, single or multiple CPT copyright 2021 [employer]. All rights reserved. The codes documented in this report are preliminary and upon physical therapy director review may be revised to meet current compliance requirements. Dennis Galvin DO 05/26/2024 1:05:20 PM This report has been signed electronically. Number of Addenda: 0 Note Initiated On: 05/26/2024 12:47 PM
--- NOTE | 2024-05-26 13:06 | OP.CCLET_ITS ---
05/26/2024 [facility] Re : Colonoscopy procedure for Loraine Escobar This procedure was performed on Sunday, May 26, 2024. My impressions and recommendations are as follows: Impressions : - Diverticulosis in the recto-sigmoid colon and in the sigmoid colon. - Congested mucosa in the recto-sigmoid colon, in the sigmoid colon and in the transverse colon. Biopsied. - The examined portion of the ileum was normal. Biopsied. Recommendations : - Discharge patient to home. - Resume previous diet. - Continue present medications. - Await pathology results. - Repeat colonoscopy for surveillance. My findings are described in the full procedure note, which is enclosed. If I can be of further assistance, please feel free to contact me at . Sincerely, Dennis Galvin, 05/26/2024 1:05:20 PM This report has been signed electronically.
--- NOTE | 2024-05-26 13:51 | PCM.POSTANE2 ---
Anesthesia Postop Eval I Sum Anesthesia Postop Eval I Summary Anesthesia Postop Eval I Summary: Anesthesia Postop Eval I: Assessment Summary Airway patent Spontaneous unlabored respirations Mental status nausea Vomiting Anesthesia Postop Eval I: Fluid Summary Crystalloid volume administer (ml) Colloids volume administered ( ml) Blood Product volume administered (ml) Total IV fluid infused Anesthesia Postop Eval I: Summary Notes Anesthesia Complication Anesthesia Complication Comment: Post-operative progress note Anesthesia: Postop Eval II Evaluation Mental status: Awake and Calm Pain Level: 0 nausea: No Vomiting: No Complications Anesthesia Complication: No
--- NOTE | 2024-05-26 14:00 | PCM.POST.ANE ---
Anesthesia: Postop Eval I Current Vital Signs Temperature: 97.5 F Pulse Rate: 78 Blood Pressure: 110/78 Respiratory Rate: 16 Pulse Ox: 98 Oxygen Delivery Method: Room Air Assessment Airway patent: Yes Spontaneous unlabored respirations: Yes Mental status: Awake and Calm nausea: No Vomiting: No Anesthesia Complication: No Fluid Hydration Crystalloid volume administer (ml): 400 Total IV fluid infused: 400 Progress Note Anesthesia document: Postop Eval 1 completed: Yes
== END 2024-05-26 14:02 | disposition home or self-care (01) ==
LOC: EN 10:40 → AC 10:43
PROVIDERS: PCP Family Medicine; Referring Provider Family Medicine; Visit Provider Internal Medicine Gastroenterology
PROC: 0DJD8ZZ Inspection of Lower Intestinal Tract, Via Natural or Artificial Opening Endoscopic (ICD-10-PCS; CPT 45378; principal; 2024-05-26 11:40)
DX: K22.2 Esophageal obstruction (principal); K44.9 Diaphragmatic hernia without obstruction or gangrene; K21.00 Gastro-esophageal reflux disease with esophagitis, without bleeding; K58.2 Mixed irritable bowel syndrome; K57.30 Diverticulosis of large intestine without perforation or abscess without bleeding; I10 Essential (primary) hypertension; Z79.899 Other long term (current) drug therapy
CPT/HCPCS: 43248; 43239; 45380; 88305; 88312; J7120; C1769

== ENCOUNTER → 2024-09-04 | Outpatient (CLI) | payer MEDICARE, SELFPAY ==
[2024-09-04 11:53] LABS: Absolute Lymphocyte Count 1.74 X10^3/uL (0.83-4.51); Absolute Neutrophil Count 6.8 X10^3/uL (2.0-7.7); Basophil# 0.06 X10^3/uL; Basophil% 0.6 % (0-1); Eosinophil# 0.13 X10^3/uL; Eosinophils% 1.4 % (0-5); Hematocrit 44.3 % (37-47); Hemoglobin 14.8 g/dL (12.0-15.0); Lymphocyte # 1.74 X10^3/ul (0.83-4.51); Lymphocyte % 18.6 % (19-41); Mean Corp Hgb Conc 33.4 g/dL (32-36); Mean Corpuscular Hgb 29.4 pg (27.0-32.0); Mean Corpuscular Volume 87.9 fL (81-99); Mean Platelet Vol. 9.2 fl (6.2-12.0); Monocyte# 0.53 X10^3/uL; Monocyte% 5.7 % (0-10); NRBC Flagged by Analyzer 0 % (0-5); Neutrophil # 6.82 X10^3/uL (2.7-7.7); Neutrophil % 72.8 % (47-70); Platelet Count 261 K/mm3 (150-450); RBC Distribution Width CV 12.6 % (11.6-14.6); RBC Distribution Width SD 40.5 fl (35.1-43.9); Red Blood Count 5.04 M/mm3 (4.2-5.4); White Blood Count 9.4 K/mm3 (4.4-11.0)
[2024-09-09 06:08] LABS: Alternaria tenuis 0.37 kU/L (Class I); Ash, White 1.31 kU/L (Class II); Aspergillus fumigatus 2.27 kU/L (Class III); Bermuda Grass 1.36 kU/L (Class II); Black Walnut 1.36 kU/L (Class II); Cat Hair / Dander,Stand 0.68 kU/L (Class II); Cedar, Mountain 1.08 kU/L (Class II); Cladosporium herbarum <0.10 kU/L (Class 0); Cockroach, American 0.68 kU/L (Class II); Cottonwood 1.19 kU/L (Class II); D farinae Mite 0.69 kU/L (Class II); D pteronyssinus 0.45 kU/L (Class I); Dog Epithelia 1.12 kU/L (Class II); Elm, American White 1.19 kU/L (Class II); Immunoglobulin E 115 IU/mL (6-495); Maple/Box Elder 1.27 kU/L (Class II); Mouse Urine <0.10 kU/L (Class 0); Mulberry, White 1.02 kU/L (Class II); Oak, White 1.21 kU/L (Class II); Pecan 1.12 kU/L (Class II); Penicillium Notatum 0.27 kU/L (Class 0/I); Pigweed, Rough 1.12 kU/L (Class II); Ragweed, Short/Common 1.51 kU/L (Class III); Russian Thistle 1.04 kU/L (Class II); Sheep Sorrel 1.21 kU/L (Class II); Sycamore, American 1.35 kU/L (Class II); Timothy Grass 2.42 kU/L (Class III)
[2024-09-09 16:09] LABS: Aspirgillus flavus Negative (Neg:<1:1); Aspirgillus fumigatus Negative (Neg:<1:1); Aspirgillus niger Negative (Neg:<1:1); Cytoplasmic Ab (C-ANCA) <1:20 titer (Neg:<1:20); Immunoglobulin A 200 mg/dL (87-352); Immunoglobulin E 141 IU/mL (6-495); Immunoglobulin G 861 mg/dL (586-1602); Immunoglobulin M 58 mg/dL (26-217); Perinuclear Ab (P-ANCA) <1:20 titer (Neg:<1:20)
== END | disposition home or self-care (01) ==
PROVIDERS: PCP Family Medicine; Referring Provider Internal Medicine Critical Care Medicine; Visit Provider Internal Medicine Critical Care Medicine
DX: J45.909 Unspecified asthma, uncomplicated (principal)
CPT/HCPCS: 36415; 82784; 82785; 85025; 86003; 86037; 86606

== ENCOUNTER → 2024-09-12 | Outpatient (CLI) | payer MEDICARE, SELFPAY | END | disposition home or self-care (01) | PROVIDERS: PCP Family Medicine; Referring Provider Internal Medicine Critical Care Medicine; Visit Provider Internal Medicine Critical Care Medicine | DX: J45.909 Unspecified asthma, uncomplicated (principal) | CPT/HCPCS: 94060; 94726; 94729 ==

== ENCOUNTER → 2024-10-09 | Outpatient (CLI) | payer MEDICARE, SELFPAY ==
[2024-10-09 13:57] VITALS: PULSE 100; PULSE 101; PULSE 104; PULSE 88; PULSE 89; PULSE 94; PULSE 99; O2SAT 96; O2SAT 97; O2SAT 98
--- NOTE | 2024-10-13 12:54 | PCM.PSN.6M ---
PSN 6 Minute Walk Test 6 Minute Walk Test 6 Minute Walk Test: 6 Minute Walk Test PSN:6-Minute Walk Test Start: 10/09/24 13:57 Freq: Status: Active Protocol: [id number] Document 10/09/24 13:57 ALEXA (Rec: 10/09/24 13:59 ALEXA [id number]) 6 Minute Walk Test Date Performed 10/09/24 Time Performed 13:45 Height 5 ft 4 in Weight: 173 lb Weight in Pounds [address]: Luis Be Assistive device used: None Pre-test Oxygen Delivery Method Room Air Pulse Ox (%) 97 Pulse Rate (60-100 beats/min) 89 Dyspnea Malinda Scale (0-10) 0 Exertion Malinda Scale (6-20) 6 1st minute Oxygen Delivery Method Room Air Pulse Ox (%) 97 Pulse Rate (60-100 beats/min) 94 2nd minute Oxygen Delivery Method Room Air Pulse Ox (%) 96 Pulse Rate (60-100 beats/min) 99 3rd minute Oxygen Delivery Method Room Air Pulse Ox (%) 97 Pulse Rate (60-100 beats/min) 101 H 4th minute Oxygen Delivery Method Room Air Pulse Ox (%) 98 Pulse Rate (60-100 beats/min) 101 H 5th minute Oxygen Delivery Method Room Air Pulse Ox (%) 97 Pulse Rate (60-100 beats/min) 100 6th minute Oxygen Delivery Method Room Air Pulse Ox (%) 97 Pulse Rate (60-100 beats/min) 104 H Dyspnea Malinda Scale (0-10) 1 Exertion Malinda Scale (6-20) 12 Post-test Oxygen Delivery Method Room Air Pulse Ox (%) 98 Pulse Rate (60-100 beats/min) 88 Full Laps Walked 18 Partial Lap, Number of Tiles Walked 31 Total Distance Walked (ft) 1093 Interpretation Interpretation: The patient ambulated 1093 feet over the course of 6 minutes beginning on room air without assistive devices. Pretesting oxygen saturation was noted to be 97% on room air. With ambulation, the gabe oxygen saturation was 96%. There was no significant exertional oxygen desaturation. Recommendations Recommendations: There is no indication for the use of supplemental oxygen at this time.
== END | disposition home or self-care (01) ==
PROVIDERS: PCP Family Medicine; Referring Provider Internal Medicine Critical Care Medicine; Visit Provider Internal Medicine Critical Care Medicine
DX: J45.909 Unspecified asthma, uncomplicated (principal)
CPT/HCPCS: 94618